=== PATIENT | male | born 1995 ===

== ENCOUNTER 2020-09-15 18:07 | Inpatient (IN) | payer OTHER ==
[~2020-09-15] VITALS: Ht 182.9 cm; Wt 90.0 kg
[~2020-09-15 18:07] MED LIST: ACETYLCYSTEINE 9,000 MG in DEXTROSE 5% 1,000 ML IV ONE
--- NOTE | 2020-09-15 18:23 | NUR ---
181: pt presents via [facility] from [facility] after possible OD on unk. substance. per report, pt bought a pill off the street and family stated that he took half of it. per report, pt may be using other substances, but family is not sure what. pt was obtunded on scene, and was given 0.5mg of Narcan, then began to vomit. 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 Escobedo at bedside for eval, RT at bedside 181: 20mg Etomidate administered 181: 10mg vecuronium adminstered #20 IV placed to L FA -nasal tube removed by MD 181: 8.0 ET tube placed with + color change, 24cm at lip 1816: vent settings: 100% O2, A/C: 16, tidal volume: 500, PEEP: 5
[2020-09-15] MEDS ORDERED: ETOMIDATE 40 MG/20 ML IVPush ONE (18:30)
[2020-09-15] MEDS ORDERED: PLEASE ENTER ALLERGIES MC SCH (18:30)
[2020-09-15] MEDS ORDERED: VECURONIUM 10 MG IVPush ONE (18:30)
[2020-09-15] MEDS ORDERED: PROPOFOL 100 ML IV PRN (18:30)
[2020-09-15] MEDS ORDERED: PLEASE ENTER HEIGHT AND WEIGHT MC SCH (18:30)
[2020-09-15] MEDS ORDERED: SODIUM CHLORIDE FLUSH 10ML SYR IVF ONE (18:30)
[2020-09-15] MEDS ORDERED: SODIUM CHLORIDE 0.9% 1,000ML IVBOLUS ONE (18:30)
--- NOTE | 2020-09-15 18:30 | NUR ---
per pt girlfriend who is waiting in the lobby, she left the house at about 10: today. pt took the pill about 10:30. he was alone all day and she found him on the floor when she came home after 1600. Dr Escobedo notified
--- NOTE | 2020-09-15 18:35 | NUR ---
lab has been to bedside to draw Dr. Escobedo and Estrella SPRAGUE student at bedside for central line placement sterile precautions in place
[2020-09-15 18:44] LABS: BASOPHILS % (AUTO) 0 % (0-1); EOSINOPHILS % (AUTO) 0 % (1-7); LYMPHOCYTES % (AUTO) 4 % (22-44); MEAN CORPUSCULAR HEMOGLOBIN 31.3 pg (27.5-34.5); MEAN CORPUSCULAR HGB CONC 33.4 g/dL (33.2-36.2); MEAN PLATELET VOLUME 7.1 fL (7.4-10.4); MONOCYTES % (AUTO) 7 % (2-9); NEUTROPHILS % (AUTO) 89 % (42-75); PLATELET COUNT 315 x10^3/uL (130-400); RED BLOOD COUNT 5.46 x10^6/uL (4.38-5.82); RED CELL DISTRIBUTION WIDTH 13.7 % (9.4-14.8)
--- NOTE | 2020-09-15 18:50 | NUR ---
central line placement completed at bedside
[2020-09-15 18:51] LABS: ALBUMIN 4.3 g/dL (3.4-5.0); ANION GAP 12 mmol/L (5-15); CALCIUM 8.1 mg/dL (8.5-10.1); CHLORIDE 106 mmol/L (98-107); CREATININE 1.67 mg/dL (0.7-1.3); SALICYLATE LEVEL 3.2 mg/dL (2.8-20.0)
[2020-09-15 19:00] LABS: ALANINE AMINOTRANSFERASE 2795 U/L (12-78); ALKALINE PHOSPHATASE 126 U/L (45-117); TOTAL PROTEIN 8.4 g/dL (6.4-8.2)
--- NOTE | 2020-09-15 19:00 | NUR ---
CXR has been to bedside report to Hugh RN
--- NOTE | 2020-09-15 19:05 | NUR ---
RECEIVED REPORT ON PT AND ASSUMED CARE AT THIS TIME. PT SEDATED AND INTUBATED IN BED. CT IS READY FOR PT. ASSESMENT COMPLETED, AND ETT SUCTIONED WITH SMALL CLEAR SECRETIONS AT THIS TIME. RT PAGED. TOO ROOM, AND PT ON TRANSPORT VENT TO CT SCAN. HEAD CT DONE WITHOUT INCIDENT AND PT REMAINS ON CR MONITOR. PROPOFOL INCREASED TO 10 PT IS BUCKING THE TUBE AND MOVING EXTREMITIES. TWO SOFT WRIST RESTRAINTS REMAIN ON PT, AND CHARTING IS DONE.
[2020-09-15 19:07] LABS: BILIRUBIN,TOTAL 0.3 mg/dL (0.2-1.0)
[2020-09-15 19:32] LABS: MD SCAN
[2020-09-15 19:45] LABS: AMPHETAMINE SCREEN, URINE Negative (Negative); BARBITURATE SCREEN, URINE Negative (Negative); BENZODIAZEPINE SCREEN, URINE Negative (Negative); CANNABINOID SCREEN, URINE Positive (Negative); COCAINE SCREEN, URINE Positive (Negative); METHADONE SCREEN, URINE Negative (Negative); OPIATE SCREEN, URINE Negative (Negative)
--- NOTE | 2020-09-15 19:57 | NUR ---
PT REMAINS SEDATED, AND PROPOFOL AT 10, AND IT IS HELPING WITH THE HTN WHERE PT WAS HAVING 165/101 BLOOD PRESSURES. PTS LATEST BLOOD PRESSURE IS 157/89. HR 100 O2 SAT 98%, CO2 39, RR ON VENT IS 20BPM.
--- NOTE | 2020-09-15 19:57 | NUR ---
PTS FIANCEE TO BEDSIDE AND UPDATED TO SITUATION. SHE IS THE ONE WHO CALLED THE EMS FOR PT. EMOTIONAL SUPPORT PROVIDED TO HER.
--- NOTE | 2020-09-15 20:06 | NUR ---
PTS KEATON IS NOW ON THE PHONE WITH HER MOTHER AND COMPLAINING TO HER WITH FOUL LANGUAGE ABOUT HAVING TO WAIT TO SEE PT HE WAS BEING EMERGENTLY TREATED IN TRAUMA 4 ROOM, AND BEING INTUBATED. KEATON HAS BEEN UPDATED WITH VISITING HOURS WHEN PT GOES TO ICU.
--- NOTE | 2020-09-15 20:10 | NUR ---
PT ETT SUCTIONED X2 AND CLEAR WITH STRANDS OF YELLOW SUCTIONED OUT, PT TOLERATED WELL.
[2020-09-15 20:12] LABS: INTERNATIONAL NORMALIZED RATIO 1.11 (0.93-1.1); PROTHROMBIN TIME 11.9 Seconds (9.6-11.5)
[2020-09-15 20:25] LABS: MICROSCOPIC INDICATED
--- NOTE | 2020-09-15 20:28 | NUR ---
RECEIVED ACETADOTE IV FLUIDS FROM PHARMACY AND STARTED THEM USING IV PUMP, TO RUN OVER 60MINUTES.
[2020-09-15] MEDS ORDERED: DEXTROSE 5% IV ONE (20:30)
[2020-09-15] MEDS ORDERED: ACETYLCYSTEINE IV ONE (20:30)
--- NOTE | 2020-09-15 20:41 | NUR ---
ACETADOTE MED FLUIDS INFUSING VIA BROWN PORT ON CVL, CLEARED FOR USE, POST CXRY BY DR. NINO.
[2020-09-15 20:51] VITALS: BP 155/96
[2020-09-15] MEDS ORDERED: FENTANYL PF 1,000 MCG in SODIUM CHLORIDE 0.9% 80 ML IV PRN (21:00)
[2020-09-15] MEDS ORDERED: SODIUM CHLORIDE FLUSH 0.9%, 20 ML ONE (21:00)
[2020-09-15] MEDS ORDERED: SENNA/DOCUSATE TABLET NG PRN (21:00)
[2020-09-15] MEDS ORDERED: GLUCAGON 1 MG IM PRN (21:00)
[2020-09-15] MEDS ORDERED: ETOMIDATE 20 MG/10 ML ONE (21:00)
[2020-09-15] MEDS ORDERED: PHARMACY MAY ADJ FOR RENAL FX MC SCH (21:00)
[2020-09-15] MEDS ORDERED: DEXTROSE 50%, 50ML SYRINGE IVPush PRN (21:00)
[2020-09-15] MEDS ORDERED: LIDOCAINE-MPF 1%, 2ML ENDO PRN (21:00)
[2020-09-15] MEDS ORDERED: SODIUM CHLORIDE FLUSH 10ML SYR IVF PRN (21:00)
[2020-09-15] MEDS ORDERED: VECURONIUM 10 MG ONE (21:00)
[2020-09-15] MEDS ORDERED: DEXTROSE 4 GM TAB.CHEW PO PRN (21:00)
[2020-09-15] MEDS ORDERED: PROPOFOL 10 MG/ML, 100ML IV ONE (21:00)
--- NOTE | 2020-09-15 21:12 | NUR ---
PTS KEATON PHONE NUMBER: JOSHUA HARDIN: [phone] KEATON HAS ASKED TO BE CONTACTED SOON PT IS AWAKE. PT CONTINUES TO SQUEEZE HIS JACKIE HAND SHE STANDS AT BEDSIDE.
[2020-09-15] MEDS ORDERED: BISACODYL 10 MG SUPP PR PRN (21:30)
[2020-09-15] MEDS ORDERED: DOCUSATE 100 MG CAPSULE PO PRN (21:30)
[2020-09-15] MEDS ORDERED: D5%-0.9% NACL 1,000 ML IV SCH (21:30)
[2020-09-15] MEDS ORDERED: PROMETHAZINE 25 MG/ML, 1ML IM PRN (21:30)
[2020-09-15] MEDS ORDERED: ONDANSETRON ODT 4 MG PO PRN (21:30)
[2020-09-15] MEDS ORDERED: ONDANSETRON 2MG/ML, 2ML IVPush PRN (21:30)
[2020-09-15] MEDS ORDERED: ACETYLCYSTEINE 4,500 MG in DEXTROSE 5% 500 ML IV ONE (21:30)
[2020-09-15] MEDS ORDERED: POLYETHYLENE GLYCOL 17 GM PACKET PO PRN (21:30)
--- NOTE | 2020-09-15 21:51 | NUR ---
REPORT CALLED TO STONEY RN IN ICU. PT REMAINS WELL SEDATED. SOFT WRIST RESTRAINTS NOT ATTACHED TO THE BED. PTS FIANCEE AT BEDSIDE AND UPDATED TO PT MOVING TO ICU. AND THE VISITING HOURS AND PT V/U. RT PAGED FOR TRANSPORT. GUEVARA INTACT, PIV X2 20G INTACT, NO ISSUES AND DRESSINGS CDI. TL CVL TO RIGHT IJ INTACT, AND DRESSING CDI. NGT PULLED BACK AND REINSERTED TO PROPER LENGTH IT LOOKED KINKED ON THE CXRY. 16 FR NGT REPLACED AND INTACT, AND POSITIVE BOWEL SOUNDS AUSCULTATED AT GASTRIC LOCATION MID ABDOMEN.
--- NOTE | 2020-09-15 22:17 | NUR ---
PT WHEELED TO ICU VIA GURNEY, AND NO ISSUES. PT TRANSFERRED TO ICU BED AND REPORT AND CARE TO STONEY DAO.
[2020-09-15] MEDS: FAMOTIDINE 20 MG/2 ML IVPush SCH (23:17)
[2020-09-15] MEDS: ENOXAPARIN 40 MG/0.4 ML SQ SCH (23:18)
[2020-09-15] MEDS: SODIUM CHLORIDE FLUSH 10ML SYR IVF SCH (23:19)
[2020-09-16] MEDS: hydrALAzine 20 MG/ML, 1ML IVPush PRN ×2 (02:07→12:05)
[2020-09-16] MEDS ORDERED: ACETYLCYSTEINE 9,000 MG in DEXTROSE 5% 1,000 ML IV ONE (03:30)
[2020-09-16 05:53] LABS: BASOPHILS % (AUTO) 0 % (0-1); EOSINOPHILS % (AUTO) 0 % (1-7); LYMPHOCYTES % (AUTO) 5 % (22-44); MEAN CORPUSCULAR HEMOGLOBIN 31.3 pg (27.5-34.5); MEAN CORPUSCULAR HGB CONC 34.2 g/dL (33.2-36.2); MEAN PLATELET VOLUME 7.3 fL (7.4-10.4); MONOCYTES % (AUTO) 8 % (2-9); NEUTROPHILS % (AUTO) 87 % (42-75); PLATELET COUNT 258 x10^3/uL (130-400); RED BLOOD COUNT 5.44 x10^6/uL (4.38-5.82); RED CELL DISTRIBUTION WIDTH 13.9 % (9.4-14.8)
[2020-09-16 06:01] LABS: CHLORIDE 105 mmol/L (98-107)
[2020-09-16 06:16] LABS: ANION GAP 8 mmol/L (5-15); CALCIUM 8.3 mg/dL (8.5-10.1); CHOL/HDL RATIO 3.2; CHOLESTEROL, TOTAL 179 mg/dL (140-239); CREATININE 1.04 mg/dL (0.7-1.3); HDL CHOL % 31 % (26-37); HDL CHOLESTEROL (DIRECT) 56 mg/dL (40-60); LDL CHOLESTEROL,CALCULATED 93 mg/dL (54-169); LDL/HDL RATIO 1.7 (0.5-3.0); TRIGLYCERIDES 148 mg/dL (50-200); VLDL CHOLESTEROL 30 mg/dL (0-25)
[2020-09-16 06:32] LABS: MD SCAN
[2020-09-16 06:58] LABS: ALBUMIN 3.4 g/dL (3.4-5.0); BILIRUBIN, DIRECT 0.1 mg/dL (0.1-0.2)
[2020-09-16] MEDS ORDERED: VANCOMYCIN PER PHARMACY MC PRN (07:00)
[2020-09-16] MEDS ORDERED: VANCOMYCIN 2,000 MG in SODIUM CHLORIDE 0.9% 500 ML IV ONE (07:00)
[2020-09-16] MEDS ORDERED: PHARMACOKINETIC MONITORING MC PRN (07:00)
[2020-09-16 07:14] LABS: BILIRUBIN,INDIRECT 0.4 mg/dL (0.0-2.0); BILIRUBIN,TOTAL 0.5 mg/dL (0.2-1.0); TOTAL PROTEIN 7.3 g/dL (6.4-8.2)
[2020-09-16] MEDS: AMPICILLIN/SULBACTAM 3 GM in SODIUM CHLORIDE 0.9% 100 ML IV SCH ×3 (07:39→19:50)
[2020-09-16] MEDS: LACTATED RINGERS 1,000 ML IV SCH ×3 (08:38→21:02)
[2020-09-16] MEDS ORDERED: LORazepam 2 MG/ML, 1ML ONE ×2 (10:02→10:03)
[2020-09-16] MEDS ORDERED: LACTATED RINGERS 1,000 ML IVBOLUS ONE (10:30)
[2020-09-16] MEDS: FAMOTIDINE 20 MG/2 ML IVPush SCH ×2 (12:05→20:52)
[2020-09-16] MEDS: SODIUM CHLORIDE FLUSH 10ML SYR IVF SCH ×2 (12:06→20:53)
[2020-09-16] MEDS: THIAMINE 200 MG in SODIUM CHLORIDE 0.9% 50 ML IV SCH (12:06)
[2020-09-16] MEDS: LORazepam 2 MG/ML, 1ML IVPush PRN (18:48)
[2020-09-16] MEDS: PROPOFOL 100 ML IV PRN (20:00)
[2020-09-16 20:14] LABS: ALBUMIN 2.7 g/dL (3.4-5.0); ANION GAP 5 mmol/L (5-15); BILIRUBIN, DIRECT 0.2 mg/dL (0.1-0.2); CALCIUM 8.4 mg/dL (8.5-10.1); CHLORIDE 106 mmol/L (98-107); CREATININE 0.75 mg/dL (0.7-1.3)
[2020-09-16 20:40] LABS: ALANINE AMINOTRANSFERASE 1906 U/L (12-78); ALKALINE PHOSPHATASE 90 U/L (45-117); BILIRUBIN,INDIRECT 0.4 mg/dL (0.0-2.0); BILIRUBIN,TOTAL 0.6 mg/dL (0.2-1.0); TOTAL PROTEIN 6.2 g/dL (6.4-8.2)
[2020-09-16] MEDS: ENOXAPARIN 40 MG/0.4 ML SQ SCH (20:55)
[2020-09-16] MEDS: VANCOMYCIN 1,700 MG in SODIUM CHLORIDE 0.9% 250 ML IV SCH (20:58)
[2020-09-16] MEDS ORDERED: LORazepam 2 MG/ML, 1ML IVPush PRN (21:00)
[2020-09-16 21:05] LABS: CREATINE KINASE, TOTAL 30837 U/L (39-308)
[2020-09-17] MEDS: PROPOFOL 100 ML IV PRN ×7 (01:04→23:29)
[2020-09-17] MEDS: LORazepam 2 MG/ML, 1ML IVPush PRN (01:04)
[2020-09-17] MEDS: AMPICILLIN/SULBACTAM 3 GM in SODIUM CHLORIDE 0.9% 100 ML IV SCH ×4 (01:04→19:51)
[2020-09-17 04:27] LABS: BASOPHILS % (AUTO) 0 % (0-1); EOSINOPHILS % (AUTO) 0 % (1-7); LYMPHOCYTES % (AUTO) 8 % (22-44); MEAN CORPUSCULAR HEMOGLOBIN 30.9 pg (27.5-34.5); MEAN CORPUSCULAR HGB CONC 33.4 g/dL (33.2-36.2); MEAN PLATELET VOLUME 7.4 fL (7.4-10.4); MONOCYTES % (AUTO) 9 % (2-9); NEUTROPHILS % (AUTO) 83 % (42-75); PLATELET COUNT 173 x10^3/uL (130-400); RED BLOOD COUNT 4.78 x10^6/uL (4.38-5.82)
[2020-09-17 04:28] LABS: MD NO
[2020-09-17 05:00] LABS: ANION GAP 4 mmol/L (5-15); BILIRUBIN, DIRECT 0.2 mg/dL (0.1-0.2); BILIRUBIN,INDIRECT 0.3 mg/dL (0.0-2.0); BILIRUBIN,TOTAL 0.5 mg/dL (0.2-1.0); CALCIUM 8.4 mg/dL (8.5-10.1); CHLORIDE 110 mmol/L (98-107); CREATININE 0.74 mg/dL (0.7-1.3)
[2020-09-17 05:01] LABS: ALANINE AMINOTRANSFERASE 1684 U/L (12-78); ALBUMIN 2.6 g/dL (3.4-5.0); ALKALINE PHOSPHATASE 84 U/L (45-117); TOTAL PROTEIN 5.9 g/dL (6.4-8.2); VANCOMYCIN,TROUGH 14.7 mcg/mL (5.0-10.0)
[2020-09-17 05:15] LABS: CREATINE KINASE, TOTAL 23134 U/L (39-308)
[2020-09-17] MEDS: LACTATED RINGERS 1,000 ML IV SCH ×3 (05:37→22:59)
[2020-09-17] MEDS: SODIUM CHLORIDE FLUSH 10ML SYR IVF SCH ×2 (09:04→20:00)
[2020-09-17] MEDS: VANCOMYCIN 1,700 MG in SODIUM CHLORIDE 0.9% 250 ML IV SCH (09:04)
--- NOTE | 2020-09-17 10:03 | NUR ---
TF per RD recs: Promote to start @25 mL/hr w/ end goal rate of 75 mL/hr (on propofol); 85mL/hr (OFF propofol). Addendum: 09/17/[address] at [address] Amended: Links added.
[2020-09-17] MEDS: THIAMINE 200 MG in SODIUM CHLORIDE 0.9% 50 ML IV SCH (11:10)
[2020-09-17] MEDS: FAMOTIDINE 20 MG/2 ML IVPush SCH ×2 (11:15→19:59)
[2020-09-17] MEDS: METOPROLOL TARTRATE 25 MG TAB PO SCH (16:32)
[2020-09-17] MEDS ORDERED: VANCOMYCIN 1,700 MG in SODIUM CHLORIDE 0.9% 250 ML IV SCH (19:00)
[2020-09-17] MEDS: ENOXAPARIN 40 MG/0.4 ML SQ SCH (19:59)
[2020-09-18] MEDS: METOPROLOL TARTRATE 25 MG TAB PO SCH ×3 (00:39→16:29)
[2020-09-18] MEDS: AMPICILLIN/SULBACTAM 3 GM in SODIUM CHLORIDE 0.9% 100 ML IV SCH ×4 (02:32→20:11)
[2020-09-18] MEDS: PROPOFOL 100 ML IV PRN ×6 (03:51→22:24)
[2020-09-18] MEDS: LORazepam 2 MG/ML, 1ML IVPush PRN (04:37)
[2020-09-18 05:31] LABS: BASOPHILS % (AUTO) 1 % (0-1); EOSINOPHILS % (AUTO) 0 % (1-7); LYMPHOCYTES % (AUTO) 10 % (22-44); MEAN CORPUSCULAR HEMOGLOBIN 31.4 pg (27.5-34.5); MEAN CORPUSCULAR HGB CONC 33.9 g/dL (33.2-36.2); MEAN PLATELET VOLUME 7.3 fL (7.4-10.4); MONOCYTES % (AUTO) 13 % (2-9); NEUTROPHILS % (AUTO) 76 % (42-75); PLATELET COUNT 174 x10^3/uL (130-400); RED BLOOD COUNT 4.35 x10^6/uL (4.38-5.82); RED CELL DISTRIBUTION WIDTH 13.4 % (9.4-14.8)
[2020-09-18 05:33] LABS: MD NO
[2020-09-18 05:39] LABS: ANION GAP 3 mmol/L (5-15); BILIRUBIN, DIRECT 0.2 mg/dL (0.1-0.2); CALCIUM 8.5 mg/dL (8.5-10.1); CHLORIDE 108 mmol/L (98-107)
[2020-09-18 06:24] LABS: ALANINE AMINOTRANSFERASE 1237 U/L (12-78); ALBUMIN 2.3 g/dL (3.4-5.0); ALKALINE PHOSPHATASE 75 U/L (45-117); BILIRUBIN,INDIRECT 0.2 mg/dL (0.0-2.0); BILIRUBIN,TOTAL 0.4 mg/dL (0.2-1.0); CREATINE KINASE, TOTAL 12462 U/L (39-308); CREATININE 0.72 mg/dL (0.7-1.3); TOTAL PROTEIN 5.9 g/dL (6.4-8.2); TRIGLYCERIDES 192 mg/dL (50-200)
[2020-09-18] MEDS: FAMOTIDINE 20 MG/2 ML IVPush SCH ×2 (08:52→21:01)
[2020-09-18] MEDS: SODIUM CHLORIDE FLUSH 10ML SYR IVF SCH ×2 (08:52→21:01)
[2020-09-18] MEDS: THIAMINE 200 MG in SODIUM CHLORIDE 0.9% 50 ML IV SCH (09:37)
[2020-09-18] MEDS ORDERED: MIDAZOLAM 1 MG/ML, 5ML IVPush ONE (10:30)
[2020-09-18] MEDS: ENOXAPARIN 40 MG/0.4 ML SQ SCH (21:02)
[2020-09-19] MEDS: METOPROLOL TARTRATE 25 MG TAB PO SCH ×3 (00:28→16:42)
[2020-09-19] MEDS: AMPICILLIN/SULBACTAM 3 GM in SODIUM CHLORIDE 0.9% 100 ML IV SCH ×4 (01:44→20:05)
[2020-09-19] MEDS: PROPOFOL 100 ML IV PRN ×5 (01:47→23:29)
[2020-09-19 04:00] LABS: BASOPHILS % (AUTO) 1 % (0-1); EOSINOPHILS % (AUTO) 1 % (1-7); LYMPHOCYTES % (AUTO) 15 % (22-44); MEAN CORPUSCULAR HGB CONC 33.1 g/dL (33.2-36.2); MEAN PLATELET VOLUME 7.1 fL (7.4-10.4); MONOCYTES % (AUTO) 13 % (2-9); NEUTROPHILS % (AUTO) 71 % (42-75); PLATELET COUNT 187 x10^3/uL (130-400); RED BLOOD COUNT 4.43 x10^6/uL (4.38-5.82); RED CELL DISTRIBUTION WIDTH 13.5 % (9.4-14.8)
[2020-09-19 04:01] LABS: MD NO
[2020-09-19 04:10] LABS: ANION GAP 2 mmol/L (5-15); CALCIUM 8.3 mg/dL (8.5-10.1); CHLORIDE 112 mmol/L (98-107); CREATININE 0.73 mg/dL (0.7-1.3)
[2020-09-19] MEDS: SODIUM CHLORIDE FLUSH 10ML SYR IVF SCH (08:39)
[2020-09-19] MEDS: FAMOTIDINE 20 MG/2 ML IVPush SCH ×2 (08:39→20:49)
[2020-09-19] MEDS: THIAMINE 200 MG in SODIUM CHLORIDE 0.9% 50 ML IV SCH (09:51)
[2020-09-19] MEDS: ENOXAPARIN 40 MG/0.4 ML SQ SCH (20:50)
[2020-09-20] MEDS: METOPROLOL TARTRATE 25 MG TAB PO SCH ×3 (00:57→17:04)
[2020-09-20] MEDS: AMPICILLIN/SULBACTAM 3 GM in SODIUM CHLORIDE 0.9% 100 ML IV SCH ×4 (01:37→21:47)
[2020-09-20 04:20] LABS: BASOPHILS % (AUTO) 1 % (0-1); EOSINOPHILS % (AUTO) 2 % (1-7); LYMPHOCYTES % (AUTO) 14 % (22-44); MEAN CORPUSCULAR HEMOGLOBIN 31.7 pg (27.5-34.5); MEAN CORPUSCULAR HGB CONC 34.1 g/dL (33.2-36.2); MONOCYTES % (AUTO) 14 % (2-9); NEUTROPHILS % (AUTO) 70 % (42-75); PLATELET COUNT 178 x10^3/uL (130-400); RED BLOOD COUNT 4.24 x10^6/uL (4.38-5.82); RED CELL DISTRIBUTION WIDTH 13.6 % (9.4-14.8)
[2020-09-20 04:21] LABS: MD NO
[2020-09-20 04:31] LABS: ANION GAP 4 mmol/L (5-15); CALCIUM 8.4 mg/dL (8.5-10.1); CHLORIDE 112 mmol/L (98-107); CREATININE 0.65 mg/dL (0.7-1.3)
[2020-09-20] MEDS: PROPOFOL 100 ML IV PRN ×4 (04:47→22:57)
[2020-09-20] MEDS: FAMOTIDINE 20 MG/2 ML IVPush SCH ×2 (08:16→21:47)
[2020-09-20] MEDS: THIAMINE 200 MG in SODIUM CHLORIDE 0.9% 50 ML IV SCH (09:04)
[2020-09-20] MEDS: ENOXAPARIN 40 MG/0.4 ML SQ SCH (21:47)
[2020-09-21] MEDS: METOPROLOL TARTRATE 25 MG TAB PO SCH ×3 (00:36→17:33)
[2020-09-21] MEDS: AMPICILLIN/SULBACTAM 3 GM in SODIUM CHLORIDE 0.9% 100 ML IV SCH ×4 (04:23→21:10)
[2020-09-21] MEDS: PROPOFOL 100 ML IV PRN ×5 (04:23→20:40)
[2020-09-21 04:26] LABS: BASOPHILS % (AUTO) 1 % (0-1); EOSINOPHILS % (AUTO) 2 % (1-7); LYMPHOCYTES % (AUTO) 13 % (22-44); MEAN CORPUSCULAR HEMOGLOBIN 31.5 pg (27.5-34.5); MEAN CORPUSCULAR HGB CONC 34.1 g/dL (33.2-36.2); MEAN PLATELET VOLUME 7.4 fL (7.4-10.4); MONOCYTES % (AUTO) 12 % (2-9); NEUTROPHILS % (AUTO) 72 % (42-75); PLATELET COUNT 214 x10^3/uL (130-400); RED BLOOD COUNT 4.18 x10^6/uL (4.38-5.82); RED CELL DISTRIBUTION WIDTH 13.3 % (9.4-14.8)
[2020-09-21 04:31] LABS: ANION GAP 5 mmol/L (5-15); CALCIUM 8.5 mg/dL (8.5-10.1); CHLORIDE 112 mmol/L (98-107); CREATININE 0.65 mg/dL (0.7-1.3)
[2020-09-21 04:32] LABS: TRIGLYCERIDES 157 mg/dL (50-200)
[2020-09-21 04:35] LABS: MD NO
[2020-09-21] MEDS: FAMOTIDINE 20 MG/2 ML IVPush SCH ×2 (07:56→21:10)
[2020-09-21] MEDS: THIAMINE 200 MG in SODIUM CHLORIDE 0.9% 50 ML IV SCH (09:00)
[2020-09-21] MEDS: ENOXAPARIN 40 MG/0.4 ML SQ SCH (21:10)
[2020-09-22] MEDS: PROPOFOL 100 ML IV PRN ×8 (00:14→23:50)
[2020-09-22] MEDS: METOPROLOL TARTRATE 25 MG TAB PO SCH ×4 (02:03→23:50)
[2020-09-22] MEDS: AMPICILLIN/SULBACTAM 3 GM in SODIUM CHLORIDE 0.9% 100 ML IV SCH ×4 (03:43→20:57)
[2020-09-22 04:44] LABS: BASOPHILS % (AUTO) 1 % (0-1); EOSINOPHILS % (AUTO) 1 % (1-7); LYMPHOCYTES % (AUTO) 14 % (22-44); MEAN CORPUSCULAR HGB CONC 33.4 g/dL (33.2-36.2); MEAN PLATELET VOLUME 6.9 fL (7.4-10.4); MONOCYTES % (AUTO) 11 % (2-9); NEUTROPHILS % (AUTO) 73 % (42-75); PLATELET COUNT 282 x10^3/uL (130-400); RED BLOOD COUNT 4.29 x10^6/uL (4.38-5.82); RED CELL DISTRIBUTION WIDTH 13.5 % (9.4-14.8)
[2020-09-22 04:45] LABS: MD NO
[2020-09-22 04:54] LABS: ANION GAP 4 mmol/L (5-15); CALCIUM 8.8 mg/dL (8.5-10.1); CHLORIDE 110 mmol/L (98-107)
[2020-09-22 04:55] LABS: CREATININE 0.59 mg/dL (0.7-1.3)
[2020-09-22] MEDS ORDERED: MIDAZOLAM HCL 50 MG in SODIUM CHLORIDE 0.9% 40 ML IV PRN (09:00)
[2020-09-22] MEDS: THIAMINE 200 MG in SODIUM CHLORIDE 0.9% 50 ML IV SCH (09:13)
[2020-09-22] MEDS: FAMOTIDINE 20 MG/2 ML IVPush SCH ×2 (09:13→20:57)
[2020-09-22] MEDS: ENOXAPARIN 40 MG/0.4 ML SQ SCH (20:57)
[2020-09-23] MEDS: AMPICILLIN/SULBACTAM 3 GM in SODIUM CHLORIDE 0.9% 100 ML IV SCH ×2 (01:00→08:12)
[2020-09-23 04:52] LABS: BASOPHILS % (AUTO) 1 % (0-1); EOSINOPHILS % (AUTO) 3 % (1-7); LYMPHOCYTES % (AUTO) 17 % (22-44); MD NO; MEAN CORPUSCULAR HEMOGLOBIN 31.2 pg (27.5-34.5); MEAN CORPUSCULAR HGB CONC 33.7 g/dL (33.2-36.2); MEAN PLATELET VOLUME 6.9 fL (7.4-10.4); MONOCYTES % (AUTO) 11 % (2-9); NEUTROPHILS % (AUTO) 69 % (42-75); PLATELET COUNT 322 x10^3/uL (130-400); RED BLOOD COUNT 4.35 x10^6/uL (4.38-5.82)
[2020-09-23 05:06] LABS: ANION GAP 4 mmol/L (5-15); CALCIUM 8.8 mg/dL (8.5-10.1); CHLORIDE 106 mmol/L (98-107)
[2020-09-23 05:07] LABS: CREATININE 0.68 mg/dL (0.7-1.3)
[2020-09-23] MEDS: PROPOFOL 100 ML IV PRN (06:20)
[2020-09-23] MEDS: FAMOTIDINE 20 MG/2 ML IVPush SCH (08:49)
[2020-09-23] MEDS: METOPROLOL TARTRATE 25 MG TAB PO SCH (08:49)
[2020-09-23] MEDS: THIAMINE 200 MG in SODIUM CHLORIDE 0.9% 50 ML IV SCH (08:49)
[2020-09-23] MEDS ORDERED: MORPHINE 30MG/30ML PCA.SYR IV PRN (11:30)
[2020-09-23] MEDS ORDERED: LORazepam 2 MG/ML, 1ML IV ONE (11:30)
[2020-09-23] MEDS ORDERED: MORPHINE SULFATE 4 MG/ML, 1ML IV ONE (11:30)
[2020-09-23] MEDS ORDERED: SCOPOLAMINE 1MG PATCH TD PRN (11:30)
[2020-09-23] MEDS ORDERED: ONDANSETRON 2MG/ML, 2ML IVPush PRN (11:30)
[2020-09-23] MEDS: morphine SULFATE 100 MG in DEXTROSE 5% 90 ML IV PRN (11:58)
[2020-09-23] MEDS: MIDAZOLAM HCL 50 MG in SODIUM CHLORIDE 0.9% 40 ML IV PRN (21:26)
[2020-09-24] MEDS: morphine SULFATE 100 MG in DEXTROSE 5% 90 ML IV PRN ×3 (01:55→19:11)
[2020-09-24] MEDS: ATROPINE OPHTH SOLN 1%, 5ML PO PRN ×8 (02:39→23:35)
[2020-09-24] MEDS: MIDAZOLAM HCL 50 MG in SODIUM CHLORIDE 0.9% 40 ML IV PRN ×3 (06:00→17:46)
[2020-09-25] MEDS: MIDAZOLAM HCL 50 MG in SODIUM CHLORIDE 0.9% 40 ML IV PRN (00:36)
[2020-09-25] MEDS: ATROPINE OPHTH SOLN 1%, 5ML PO PRN ×2 (00:44→06:13)
[2020-09-25] MEDS: morphine SULFATE 100 MG in DEXTROSE 5% 90 ML IV PRN (07:27)
[2020-09-25] MEDS ORDERED: HYDROmorphone/PF 20 MG in SODIUM CHLORIDE 0.9% 98 ML IV PRN (09:00)
[2020-09-25] MEDS ORDERED: LORazepam 2 MG/ML, 1ML IVPush SCH (09:00)
[2020-09-25] MEDS ORDERED: FENTANYL REMOVE PATCH NOTE XX SCH (09:00)
[2020-09-25] MEDS ORDERED: FENTANYL 25 MCG PATCH TD SCH (09:00)
== END 2020-09-25 15:28 | disposition expired | DRG 917 ==
LOC: ED 19:40 → EDIP 20:33 → CCU 22:05 → 4NW 09-23 14:38
PROVIDERS: ADMIT Internal Medicine; ATTEND Internal Medicine
PROC: 5A1955Z Respiratory Ventilation, Greater than 96 Consecutive Hours (ICD-10-PCS; principal; 2020-09-15)
PROC: 0BH18EZ Insertion of Endotracheal Airway into Trachea, Via Natural or Artificial Opening Endoscopic (ICD-10-PCS; 2020-09-15)
PROC: 02HV33Z Insertion of Infusion Device into Superior Vena Cava, Percutaneous Approach (ICD-10-PCS; 2020-09-15)
DX: T40.5X1A Poisoning by cocaine, accidental (unintentional), initial encounter (principal); J96.01 Acute respiratory failure with hypoxia; G92 Toxic encephalopathy; K72.01 Acute and subacute hepatic failure with coma; G93.6 Cerebral edema; N17.0 Acute kidney failure with tubular necrosis; G93.1 Anoxic brain damage, not elsewhere classified; E87.2 Acidosis; L03.90 Cellulitis, unspecified; M62.82 Rhabdomyolysis; Z99.11 Dependence on respirator [ventilator] status; F10.10 Alcohol abuse, uncomplicated; Z66 Do not resuscitate; F11.10 Opioid abuse, uncomplicated; F12.10 Cannabis abuse, uncomplicated; F14.10 Cocaine abuse, uncomplicated; F17.210 Nicotine dependence, cigarettes, uncomplicated; R56.9 Unspecified convulsions; Z51.5 Encounter for palliative care; Z79.899 Other long term (current) drug therapy
CPT/HCPCS: 36415; 36600; 99291; J3490; J7042; 70450; 70551; 71045; 76700; 80048; 80053; 80061; 80074; 80076; 80202; 80299; 80307; 80320; 80329; 81001; 82550; 82803; 83690; 83735; 84100; 84443; 84478; 85025; 85610; 85730; 86706; 87040; 87070; 87077; 87081; 87086; 87147; 87186; 87205; 93005; 94002; 94003; 95812; 95819; G0378; J0132; J0295; J1170; J1650; J2060; J2250; J2704; J3010; J3370; J3411; J7060; J7070; G0480; J0360; J2270; J7040; J7050; J7120